=== PATIENT | male | born 1970 | race African-American/Black ===

== ENCOUNTER 2023-07-07 07:47 | Emergency (ER) | payer BC, SELFPAY ==
[2023-07-07] MEDS ORDERED: Famotidine 20 MG TAB ONE (08:23)
[2023-07-07] MEDS ORDERED: Dexameth. Sod Phosp. 10 MG/ML (CHEMO USE ONLY) ONE (08:23)
[2023-07-07] MEDS ORDERED: diphenhydrAMINE 25 MG CAP ONE (08:23)
== END 2023-07-07 08:48 | disposition home or self-care (01) ==
LOC: ERS 07:47
DX: T78.40XA Allergy, unspecified, initial encounter (principal); E11.9 Type 2 diabetes mellitus without complications; I10 Essential (primary) hypertension; E78.5 Hyperlipidemia, unspecified; Z79.82 Long term (current) use of aspirin; Z79.899 Other long term (current) drug therapy; Z79.84 Long term (current) use of oral hypoglycemic drugs
CPT/HCPCS: 96372; 99283; J1100

== ENCOUNTER 2023-11-26 15:46 | Outpatient (CLI) | payer BC | END 2023-11-26 15:47 | disposition home or self-care (01) | LOC: BICRAD 15:46 | PROVIDERS: ATTEND Family Medicine | DX: M25.561 Pain in right knee (principal) ==